=== PATIENT | female | born 1965 | race African-American/Black ===

== ENCOUNTER 2022-12-26 03:03 | Emergency (ER) | payer MEDICAID, OTHER ==
[~2022-12-26] VITALS: Ht 172.7 cm; Wt 160.0 kg
[~2022-12-26 03:03] MED LIST: CEPH500T MT; SULF1TAB48 MT
[2022-12-26] MEDS ORDERED: ALBUTEROL (0.083%) 2.5MG/3ML NEB HHN STA (03:13)
[2022-12-26] MEDS ORDERED: IPRATROPIUM BROMIDE (0.02%) 0.5MG/2.5ML NEB HHN STA (03:13)
[2022-12-26 03:34] VITALS: PULSE 79; RESP 18; O2SAT 92
[2022-12-26 03:58] LABS: BASOPHILS % 0.6 % (0.0-2.0); EOSINOPHILS % 3.9 % (0.0-5.0); HEMATOCRIT. 40.3 % (36.0-48.0); HEMOGLOBIN. 13.4 g/dL (12.0-16.0); LYMPHOCYTES % 17.6 % (20.0-50.0); MEAN CORPUSCULAR HEMOGLOBIN 28.4 pg (28.0-32.0); MEAN CORPUSCULAR HGB CONC 33.2 g/dL (31.0-37.0); MEAN CORPUSCULAR VOLUME 85.4 fL (81.0-99.0); MEAN PLATELET VOLUME 8.5 fl (7.4-10.4); MONOCYTES % 7.4 % (2.0-8.0); NEUTROPHILS % 70.5 % (40.0-76.0); PLATELET 215 x1000/uL (130-400); RED BLOOD CELL COUNT 4.71 mill/uL (4.2-5.4); RED CELL DISTRIBUTION WIDTH 16.5 % (11.6-14.6); WHITE BLOOD COUNT 8.5 x1000/uL (4.5-11.0)
[2022-12-26 04:07] LABS: CHLORIDE 108 mEq/L (98-107); INDEX HEMOLYSI 1 (1-3); INDEX ICTERIC 1 (1-4); INDEX LIPEMIC 1 (1-3); POTASSIUM 3.8 mEq/L (3.5-5.1); SODIUM 140 mEq/L (136-145)
[2022-12-26 04:17] LABS: ALANINE AMINOTRANSFERASE 20 IU/L (13-61); ALBUMIN 3.2 g/dL (3.4-5.0); ASPARTATE AMINOTRANSFERASE 11 IU/L (15-37); BILIRUBIN TOTAL 0.3 mg/dL (0.1-1.0); CALCIUM 8.4 mg/dL (8.5-10.1); CARBON DIOXIDE 32 mEq/L (21-32); CREATININE 0.7 mg/dL (0.6-1.3); ETHANOL BLOOD < 10 mg/dL (-10); GLUCOSE 146 mg/dL (70-105); NT PRO B-TYPE NATRIURETIC PEP 112 pg/mL (5-125); PROTEIN TOTAL 7.7 g/dL (6.0-8.3); TROPONIN I HIGH SENSITIVITY 10 ng/L (<54); UREA NITROGEN BLOOD 9 mg/dL (7-21)
[2022-12-26] MEDS ORDERED: MORPHINE SULFATE 4 MG/ML CPJ (NOT FOR IM USE) IV ONE (06:00)
[2022-12-26 07:43] VITALS: BP 177/82; PULSE 88; RESP 16; TEMP 97.9
== END 2022-12-26 07:57 | disposition short-term general hospital (02) ==
LOC: ER 03:12 → CANBEDREQ 12-27 19:54
DX: J44.1 Chronic obstructive pulmonary disease with (acute) exacerbation (principal); M79.89 Other specified soft tissue disorders; I11.0 Hypertensive heart disease with heart failure; I50.9 Heart failure, unspecified; E11.9 Type 2 diabetes mellitus without complications; Z98.890 Other specified postprocedural states
CPT/HCPCS: 80053; 80320; 83880; 83605; 83690; 85025; 86850; 86900; 86901; 87040; 84484; 36415; 71045; 93970; 94640; 93005; 96374; 99285; Z7610 ×6; J2270; G0480

== ENCOUNTER 2023-05-20 09:43 | Emergency (ER) | payer OTHER ==
[~2023-05-20] VITALS: Ht 167.6 cm; Wt 112.0 kg
[2023-05-20 09:47] VITALS: BP 127/81; PULSE 99; RESP 16; TEMP 98
== END 2023-05-20 12:24 | disposition home or self-care (01) ==
LOC: ER 09:43
DX: D17.9 Benign lipomatous neoplasm, unspecified (principal); I11.0 Hypertensive heart disease with heart failure; I50.9 Heart failure, unspecified; E11.9 Type 2 diabetes mellitus without complications; J44.1 Chronic obstructive pulmonary disease with (acute) exacerbation
CPT/HCPCS: 99283

== ENCOUNTER 2023-12-01 18:08 | Emergency (ER) | payer OTHER ==
[~2023-12-01] VITALS: Ht 165.1 cm; Wt 100.0 kg
[~2023-12-01 18:08] MED LIST changes: +ALBU18HF2 IH; -CEPH500T MT; +DICL387C TP; +FAMO20TA8 MT; +FLUT1DIS2 INH; +P20 MT; -SULF1TAB48 MT
[2023-12-01 18:21] VITALS: TEMP 98.4; O2SAT 99
[2023-12-01 19:24] LABS: BASOPHILS % 0.8 % (0.0-2.0); EOSINOPHILS % 0.6 % (0.0-5.0); HEMATOCRIT. 43.2 % (36.0-48.0); HEMOGLOBIN. 13.9 g/dL (12.0-16.0); LYMPHOCYTES % 9.3 % (20.0-50.0); MEAN CORPUSCULAR HEMOGLOBIN 28.3 pg (28.0-32.0); MEAN CORPUSCULAR HGB CONC 32.3 g/dL (31.0-37.0); MEAN CORPUSCULAR VOLUME 87.6 fL (81.0-99.0); MEAN PLATELET VOLUME 8.6 fl (7.4-10.4); MONOCYTES % 7.6 % (2.0-8.0); NEUTROPHILS % 81.7 % (40.0-76.0); PLATELET 232 x1000/uL (130-400); RED BLOOD CELL COUNT 4.93 mill/uL (4.2-5.4); RED CELL DISTRIBUTION WIDTH 17.3 % (11.6-14.6); WHITE BLOOD COUNT 16.9 x1000/uL (4.5-11.0)
[2023-12-01 19:29] LABS: CHLORIDE 101 mEq/L (98-107); SODIUM 139 mEq/L (136-145)
[2023-12-01 19:30] LABS: CARBON DIOXIDE 34 mEq/L (21-32)
[2023-12-01 19:35] LABS: GLUCOSE 98 mg/dL (70-105); UREA NITROGEN BLOOD 13 mg/dL (9-23)
[2023-12-01 19:40] LABS: INR 1.1; PROTHROMBIN TIME 11.8 sec (9.6-11.0)
[2023-12-01] MEDS ORDERED: PIPERACILLIN/TAZO 3.375G/50ML 50 ML IV STA (19:42)
[2023-12-01] MEDS: VANCOMYCIN 1.5GM/250ML 250 ML IV STA (21:40)
[2023-12-01 23:14] VITALS: BP 111/56; PULSE 82; RESP 18; O2SAT 98
== END 2023-12-01 23:34 | disposition short-term general hospital (02) ==
LOC: ER 18:08
DX: L03.116 Cellulitis of left lower limb (principal); L03.115 Cellulitis of right lower limb; J44.9 Chronic obstructive pulmonary disease, unspecified; I11.0 Hypertensive heart disease with heart failure; I50.9 Heart failure, unspecified; E11.9 Type 2 diabetes mellitus without complications; K21.9 Gastro-esophageal reflux disease without esophagitis; Z79.899 Other long term (current) drug therapy
CPT/HCPCS: 80048; 83880; 83605; 85025; 85610; 87040; 36415; 84145; 71045; 93970; 93005; 96365; 99291; J3370; J2543; Z7610

== ENCOUNTER 2023-12-29 12:22 | Emergency (ER) | payer OTHER ==
[~2023-12-29] VITALS: Ht 165.1 cm; Wt 132.0 kg
[2023-12-29 13:18] LABS: BASOPHILS % 0.8 % (0.0-2.0); EOSINOPHILS % 3.1 % (0.0-5.0); HEMATOCRIT. 42.6 % (36.0-48.0); HEMOGLOBIN. 13.7 g/dL (12.0-16.0); LYMPHOCYTES % 18.5 % (20.0-50.0); MEAN CORPUSCULAR HEMOGLOBIN 28.2 pg (28.0-32.0); MEAN CORPUSCULAR HGB CONC 32.1 g/dL (31.0-37.0); MEAN CORPUSCULAR VOLUME 87.9 fL (81.0-99.0); MEAN PLATELET VOLUME 8.2 fl (7.4-10.4); MONOCYTES % 7.8 % (2.0-8.0); NEUTROPHILS % 69.8 % (40.0-76.0); PLATELET 215 x1000/uL (130-400); RED BLOOD CELL COUNT 4.85 mill/uL (4.2-5.4); RED CELL DISTRIBUTION WIDTH 16.8 % (11.6-14.6); WHITE BLOOD COUNT 8.9 x1000/uL (4.5-11.0)
[2023-12-29 13:27] LABS: CHLORIDE 106 mEq/L (98-107); POTASSIUM 4.2 mEq/L (3.5-5.1); SODIUM 142 mEq/L (136-145)
[2023-12-29 13:28] LABS: CARBON DIOXIDE 31 mEq/L (21-32)
[2023-12-29 13:29] LABS: CALCIUM 9.4 mg/dL (8.7-10.4)
[2023-12-29 13:33] LABS: CREATININE 0.8 mg/dL (0.6-1.0); GLUCOSE 117 mg/dL (70-105); UREA NITROGEN BLOOD 9 mg/dL (9-23)
[2023-12-29 13:34] LABS: TROPONIN I HIGH SENSITIVITY 5 ng/L (3.0-34)
[2023-12-29 15:31] VITALS: PULSE 89; RESP 16; O2SAT 97
[2023-12-29] MEDS: ALBUTEROL (0.083%) 2.5MG/3ML NEB HHN STA (15:31)
[2023-12-29] MEDS: METHYLPREDNISOLONE SOD SUCC 125MG/2ML (ACT-O-VIAL) IV STA (15:38)
[2023-12-29] MEDS: AMPICILLIN SOD/SULBACTAM NA 3 G in SODIUM CHLORIDE 0.9% 100 ML IV SCH (15:38)
[2023-12-29 18:25] VITALS: BP 144/86; PULSE 84; RESP 16; TEMP 36.89184; O2SAT 95
== END 2023-12-29 18:53 | disposition short-term general hospital (02) ==
LOC: ER 13:45 → CANBEDREQ 15:17 → ER 18:53
DX: J44.1 Chronic obstructive pulmonary disease with (acute) exacerbation (principal); R06.03 Acute respiratory distress; E11.9 Type 2 diabetes mellitus without complications; I11.0 Hypertensive heart disease with heart failure; I50.9 Heart failure, unspecified; Z79.899 Other long term (current) drug therapy
CPT/HCPCS: 80048; 83880; 85025; 87040; 84484; 36415; 71045; 94640; 93005; 96365; 96375; 99285; J0295; J2919; Z7610 ×6; J7050